=== PATIENT | female | born 1955 | race Caucasian/White ===

== ENCOUNTER → 2023-08-28 06:25 | Outpatient (REF) | payer MEDICARE, SELFPAY | LOC: RAD 06:25 | PROVIDERS: ATTENDING PHYSICIAN Obstetrics & Gynecology; FAMILY PHYSICIAN Family Medicine; REFERRING PHYSICIAN Surgery | DX: K59.00 Constipation, unspecified (principal); M62.89 Other specified disorders of muscle; R19.8 Other specified symptoms and signs involving the digestive system and abdomen | CPT/HCPCS: 74270 ==